=== PATIENT | female | born 1935 | race Caucasian/White ===

== ENCOUNTER 2017-03-08 08:31 | Outpatient (CLI) | payer MEDICARE ==
[2017-03-08 09:41] LABS: Anion Gap 10 mmol/L (10-20); BUN (Urea Nitrogen) 15 mg/dL (9.8-20.1); Calc. Creatinine Clearance 0 mL/min (70-130); Carbon Dioxide 29 mmol/L (23-31); Chloride 101 mmol/L (98-107); Estimated GFR-MDRD 69
--- NOTE | 2017-03-08 09:49 | ULT ---
RENAL ULTRASOUND BILATERAL: History Cyst. COMPARISON: None. FINDINGS: The kidney measures 9.4 x 5.3 x 6.3 cm and the right kidney measures 9.6 x 4 x 4.8 cm. The prevoid urinary bladder volume is 232 mL. There is a cyst at the inferior pole left kidney measuring 1.7 cm. There is also a cyst of the infe rior pole right kidney measuring 3.1 cm. No hydronephrosis. IMPRESSION: Simple bilateral renal cysts. POS: [facility]
[2017-03-08 13:03] LABS: Bilirubin Negative (Negative); Blood, Urine Negative (Negative); Glucose, Urine (Dipstick) Negative (Negative); Ketone, Urine Negative (Negative); Nitrite Negative (Negative); Protein, Urine (Dipstick) Negative (Neg-Trace); Urobilinogen 0.2 mg/dL (0.2-1.0)
[2017-03-08 13:05] LABS: Bacteria/HPF None Seen HPF (None Seen); Hyaline Casts/LPF 0-3 HYALINE CAST LPF (0-3 Hyaline); RBC/HPF 0-3 HPF (0-3); Squamous Epithelial 0-3 HPF (0-3); WBC/HPF None Seen HPF (0-3)
== END 2017-03-08 08:32 | disposition home or self-care (01) ==
LOC: ULT 08:31
PROVIDERS: ATTEND Urology
DX: Q61.9 Cystic kidney disease, unspecified (principal); R31.29 Other microscopic hematuria; N39.0 Urinary tract infection, site not specified; N28.1 Cyst of kidney, acquired
CPT/HCPCS: 36415; 76770; 80048; 81001; 87086; 88112

== ENCOUNTER 2017-05-03 02:39 | Emergency (ER) | payer MEDICARE ==
[2017-05-03 03:35] LABS: Hematocrit 38.5 % (36.0-47.0); Mean Platelet Volume 5.9 fL (7.4-10.4); Red Blood Cell (RBC) Count 3.99 mill/uL (4.20-5.40)
[2017-05-03 03:50] LABS: Band 1 % (5-11); Neutrophil 56 % (42-75); Reactive Lymphocytes 1 % (0-10)
[2017-05-03 03:54] LABS: Anion Gap 10 mmol/L (10-20); BUN (Urea Nitrogen) 14 mg/dL (9.8-20.1); Calc. Creatinine Clearance 0 mL/min (70-130); Carbon Dioxide 27 mmol/L (23-31); Chloride 106 mmol/L (98-107); Estimated GFR-MDRD 69
[2017-05-03 03:55] LABS: ALT (SGPT) 13 U/L (8-55); AST (SGOT) 18 U/L (5-34); Alkaline Phosphatase 39 U/L (40-150); Bilirubin, Total 0.5 mg/dL (0.2-1.2); CK (CPK) 58 U/L (29-168); Calcium 9.2 mg/dL (7.8-10.44); Globulin 2.1 g/dL (2.4-3.5); Protein, Total 6.1 g/dL (6.0-8.3)
[2017-05-03 03:59] LABS: Troponin I Less than 0.010 ng/mL (< 0.028)
--- NOTE | 2017-05-03 08:15 | RAD ---
SINGLE VIEW OF THE CHEST: Comparison: 03-25-15 History: Chest pain. FINDINGS: Single view of the chest shows a normal sized cardiomediastinal silhouette. The pacemaker is unchange d in position. There is no evidence of consolidation, mass, or pleural effusion. Increased interstiti al markings are present. IMPRESSION: No evidence of acute cardiopulmonary disease. POS: [facility]
== END 2017-05-03 04:32 | disposition home or self-care (01) ==
LOC: ERS 02:39
DX: R07.9 Chest pain, unspecified (principal); E78.5 Hyperlipidemia, unspecified; I10 Essential (primary) hypertension; Z87.891 Personal history of nicotine dependence
CPT/HCPCS: 36415; 71010; 80053; 82553; 84484; 85025; 93005

== ENCOUNTER 2017-09-19 13:31 | Emergency (ER) | payer MEDICARE | END 2017-09-19 14:25 | disposition home or self-care (01) | LOC: ERS 13:31 | DX: S61.215A Laceration without foreign body of left ring finger without damage to nail, initial encounter (principal); E78.5 Hyperlipidemia, unspecified; I10 Essential (primary) hypertension; Z87.891 Personal history of nicotine dependence | CPT/HCPCS: 12001 ==

== ENCOUNTER 2017-12-09 10:40 | Emergency (ER) | payer MEDICARE | END 2017-12-09 12:15 | disposition home or self-care (01) | LOC: ERS 10:40 | DX: L03.113 Cellulitis of right upper limb (principal); I10 Essential (primary) hypertension; E78.5 Hyperlipidemia, unspecified; Z79.899 Other long term (current) drug therapy; Z87.891 Personal history of nicotine dependence; Z79.82 Long term (current) use of aspirin | CPT/HCPCS: 90471 ==

== ENCOUNTER 2017-12-14 10:21 | Emergency (ER) | payer MEDICARE ==
[2017-12-14] MEDS ORDERED: Bacitracin Zinc 1 Packet ONE (10:50)
== END 2017-12-14 11:00 | disposition home or self-care (01) ==
LOC: ERS 10:21
DX: S50.811A Abrasion of right forearm, initial encounter (principal); E78.5 Hyperlipidemia, unspecified; I10 Essential (primary) hypertension; Z87.891 Personal history of nicotine dependence; X58.XXXA Exposure to other specified factors, initial encounter
CPT/HCPCS: 99283

== ENCOUNTER 2017-12-28 12:49 | Emergency (ER) | payer MEDICARE ==
--- NOTE | 2017-12-28 14:49 | ULT ---
VENOUS DOPPLER ULTRASOUND OF THE LEFT LOWER EXTREMITY: Date: 12/28/17 HISTORY: Left lower extremity pain and edema. TECHNIQUE: Jacob scale ultrasound with color flow and spectral Doppler imaging of the deep venous systems of the left lower extremity is performed. FINDINGS: There is good flow, compression, and augmentation noted in the left common femoral, femoral, deep fem oral, popliteal, posterior tibial, and greater saphenous veins. IMPRESSION: No evidence of deep venous thrombosis in the left lower extremity. POS: [facility]
== END 2017-12-28 15:21 | disposition home or self-care (01) ==
LOC: ERS 12:49
DX: S86.112A Strain of other muscle(s) and tendon(s) of posterior muscle group at lower leg level, left leg, initial encounter (principal); E78.5 Hyperlipidemia, unspecified; I10 Essential (primary) hypertension; Z87.891 Personal history of nicotine dependence; Z79.82 Long term (current) use of aspirin; Z79.899 Other long term (current) drug therapy; W18.30XA Fall on same level, unspecified, initial encounter

== ENCOUNTER 2018-02-20 10:42 | Emergency (ER) | payer MEDICARE ==
--- NOTE | 2018-02-20 14:40 | RAD ---
RADIOGRAPH LEFT KNEE 4 VIEWS: 02/20/18 HISTORY: 83-year-old female with traumatic knee pain due to fall. FINDINGS: There is no fracture or dislocation. Mild to moderate DJD at patellofemoral compartment. Mild DJD at medial and lateral compartment, without joint space narrowing there. IMPRESSION: 1. Predominantly mild osteoarthrosis. 2. No fracture. POS: [facility]
== END 2018-02-20 14:00 | disposition home or self-care (01) ==
LOC: ERS 10:42
DX: S80.212A Abrasion, left knee, initial encounter (principal); E78.5 Hyperlipidemia, unspecified; I10 Essential (primary) hypertension; Z87.891 Personal history of nicotine dependence; Z79.82 Long term (current) use of aspirin; Z79.899 Other long term (current) drug therapy; W19.XXXA Unspecified fall, initial encounter

== ENCOUNTER 2018-03-25 07:38 | Emergency (ER) | payer MEDICARE ==
[2018-03-25 08:34] LABS: #Eosinphils 0.1 thou/uL (0.0-0.7); #Monocytes 0.5 thou/uL (0.11-0.59); #Neutrophils 3.3 thou/uL (1.40-6.50); %Basophils 0.3 % (0.0-1.0); %Eosinophils 2.1 % (0.0-10.0); %Lymphocytes 20.6 % (21.0-51.0); %Monocytes 10.6 % (0.0-10.0); %Neutrophils 66.3 % (42.0-75.0); Hemoglobin 13.7 g/dL (12.0-16.0); Mean Corpuscular HGB CONC 33.6 g/dL (32.0-36.0); Mean Corpuscular Hemoglobin 31.9 pg (27.0-31.0); Mean Corpuscular Volume 94.9 fL (78.0-98.0); Mean Platelet Volume 5.9 fL (7.4-10.4); Platelet Count 256 thou/uL (130-400); RBC Distribution Width 11.1 % (11.5-14.5); Red Blood Cell (RBC) Count 4.29 mill/uL (4.20-5.40); White Blood Cell (WBC) Count 4.9 thou/uL (4.8-10.8)
[2018-03-25 08:52] LABS: ALT (SGPT) 12 U/L (8-55); AST (SGOT) 17 U/L (5-34); Albumin 4.3 g/dL (3.4-4.8); Alkaline Phosphatase 36 U/L (40-150); Anion Gap 11 mmol/L (10-20); BUN (Urea Nitrogen) 10 mg/dL (9.8-20.1); Bilirubin, Total 0.6 mg/dL (0.2-1.2); Calc. Creatinine Clearance 0 mL/min (70-130); Calcium 9.1 mg/dL (7.8-10.44); Carbon Dioxide 29 mmol/L (23-31); Chloride 104 mmol/L (98-107); Estimated GFR-MDRD 62; Globulin 2.2 g/dL (2.4-3.5); Glucose 95 mg/dL (83-110); Potassium 3.8 mmol/L (3.5-5.1); Protein, Total 6.5 g/dL (6.0-8.3); Sodium 140 mmol/L (136-145)
[2018-03-25 09:25] LABS: Bilirubin Negative (Negative); Blood, Urine Negative (Negative); Clarity CLEAR (Clear); Glucose, Urine (Dipstick) Negative (Negative); Leukocyte Moderate (Negative); Nitrite Negative (Negative); Protein, Urine (Dipstick) Negative (Neg-Trace); Specific Gravity, Urine 1.009 (1.002-1.036); Urobilinogen 0.2 mg/dL (0.2-1.0); pH, Urine 6.5 (5.0-9.0)
[2018-03-25 09:26] LABS: Bacteria/HPF None Seen HPF (None Seen); Hyaline Casts/LPF 0-3 HYALINE CAST LPF (0-3 Hyaline); Pathc Cast-AUWi Flag 0.43 (0-2.49); RBC/HPF 0-3 HPF (0-3); Squamous Epithelial 0-3 HPF (0-3)
== END 2018-03-25 10:28 | disposition home or self-care (01) ==
LOC: ERS 07:38
DX: R19.7 Diarrhea, unspecified (principal); E78.5 Hyperlipidemia, unspecified; I10 Essential (primary) hypertension; Z87.891 Personal history of nicotine dependence; Z79.82 Long term (current) use of aspirin; Z79.899 Other long term (current) drug therapy
CPT/HCPCS: 36415; 80053; 81003; 81015; 85025; 99284

== ENCOUNTER 2018-07-24 17:43 | Observation (INO) | payer MEDICARE ==
--- NOTE | 2018-07-24 18:50 | RAD ---
CHEST ONE VIEW: 07/24/18 COMPARISON: 05/03/17 HISTORY: Pain. FINDINGS: There is atherosclerosis of the aorta. Stable left sided transvenous pacemaker. Normal cardiac silhou ette. Pulmonary vessels and hilum are normal. Costophrenic angles are clear. No masses or consolidati on. No pneumothorax or osseous abnormalities. IMPRESSION: Atherosclerosis. No acute cardiopulmonary process. POS: [facility]
[2018-07-24 18:54] LABS: #Eosinphils 0.1 thou/uL (0.0-0.7); #Lymphocytes 1.1 thou/uL (1.20-3.40); #Monocytes 0.6 thou/uL (0.11-0.59); #Neutrophils 3.6 thou/uL (1.40-6.50); %Basophils 0.9 % (0.0-1.0); %Eosinophils 1.9 % (0.0-10.0); %Lymphocytes 20.1 % (21.0-51.0); %Monocytes 11.5 % (0.0-10.0); %Neutrophils 65.7 % (42.0-75.0); Hemoglobin 13.1 g/dL (12.0-16.0); Mean Corpuscular HGB CONC 32.8 g/dL (32.0-36.0); Mean Corpuscular Hemoglobin 32.1 pg (27.0-31.0); Mean Corpuscular Volume 97.6 fL (78.0-98.0); Mean Platelet Volume 6.7 fL (7.4-10.4); Platelet Count 227 thou/uL (130-400); RBC Distribution Width 10.6 % (11.5-14.5); Red Blood Cell (RBC) Count 4.09 mill/uL (4.20-5.40); White Blood Cell (WBC) Count 5.5 thou/uL (4.8-10.8)
[2018-07-24 19:21] LABS: ALT (SGPT) 11 U/L (8-55); AST (SGOT) 14 U/L (5-34); Albumin 4.2 g/dL (3.4-4.8); Alkaline Phosphatase 61 U/L (40-150); Anion Gap 12 mmol/L (10-20); BUN (Urea Nitrogen) 20 mg/dL (9.8-20.1); Bilirubin, Total 0.3 mg/dL (0.2-1.2); Calc. Creatinine Clearance 0 mL/min (70-130); Calcium 9.5 mg/dL (7.8-10.44); Carbon Dioxide 30 mmol/L (23-31); Chloride 103 mmol/L (98-107); Estimated GFR-MDRD 59; Globulin 2.3 g/dL (2.4-3.5); Glucose 99 mg/dL (83-110); Lipase 35 U/L (8-78); Protein, Total 6.5 g/dL (6.0-8.3); Sodium 141 mmol/L (136-145)
[2018-07-24 20:29] LABS: Bilirubin Negative (Negative); Blood, Urine Small (Negative); Clarity CLOUDY (Clear); Glucose, Urine (Dipstick) Negative (Negative); Leukocyte Large (Negative); Nitrite Positive (Negative); Protein, Urine (Dipstick) Trace mg/dL (Neg-Trace); Specific Gravity, Urine 1.007 (1.002-1.036)
[2018-07-24 20:31] LABS: Hyaline Casts/LPF 4-6 HYALINE CAST LPF (0-3 Hyaline); Pathc Cast-AUWi Flag 1.16 (0-2.49); Squamous Epithelial None Seen HPF (0-3); Yeast-AUWi Flag 46.8 (0-25.0)
[2018-07-24 20:40] LABS: Bacteria/HPF 2+ HPF (None Seen); WBC/HPF 21-50 HPF (0-3); Yeast-All Forms None Seen HPF (None Seen)
[2018-07-24 22:43] LABS: Troponin I Less than 0.010 ng/mL (< 0.028)
[2018-07-24] MEDS ORDERED: Aspirin Chewable 81 MG TAB ONE (22:55)
[2018-07-24] MEDS ORDERED: cefTRIAXone\\ROCEPHIN 2 GM VIAL ONE (22:55)
[2018-07-25 01:02] LABS: Troponin I Less than 0.010 ng/mL (< 0.028)
[2018-07-25 04:01] VITALS: BMI 21.4
[2018-07-25] MEDS ORDERED: Acetaminophen 325 MG TAB PO PRN (08:06)
[2018-07-25] MEDS ORDERED: Ondansetron ODT 4 MG TAB PO PRN (08:06)
[2018-07-25] MEDS ORDERED: Enoxaparin Sodium 40 MG/0.4 ML SYRINGE SC SCH (09:00)
[2018-07-25] MEDS ORDERED: Prevnar 13-Val Conj/PF 0.5 ML SYRINGE IM ONE (09:00)
--- NOTE | 2018-07-25 09:06 | HP ---
PRIMARY CARE PROVIDER: Chi Levine MD CHIEF COMPLAINT: "I don't have a brain anymore." The patient was referred to the [facility] by [facility] with chest pain. The patient is a poor historian; with difficulty, she says she had left lateral chest pain. She does not know how long it lasted. No shortness of breath and so sweats. No nausea. PAST MEDICAL HISTORY: Pertinent for hypertension, dyslipidemia, pacemaker for bradycardia. She has had two stress tests done, one in the distant past and one approximately 4 years ago, those were normal. She has a hysterectomy, cholecystectomy, , and oophorectomy. CURRENT MEDICATIONS: Unavailable. Her daughter left and the patient does not know her medicines. ALLERGIES: BY CHART, SHE IS ALLERGIC TO CODEINE AND FLAGYL. PERSONAL HISTORY: Quit smoking 20+ years ago. Does not use alcohol. . Does not understand code status. Unable to locate her daughter, Fransisca, no answer to telephone. She will be made full code pending that conversation. FAMILY HISTORY: Mother of a CVA at 80 years of age. Father in a motor vehicle accident in his 40s. REVIEW OF SYSTEMS: Review of systems was done. Reliability is questionable. CONSTITUTIONAL: In general, no headaches, dizziness or fainting. EYES: No double vision, blurred vision or flashing lights. EAR, NOSE AND THROAT: No ear pain or drainage. No nasal bleeding. No trouble swallowing. CARDIAC: No shortness of breath, orthopnea or paroxysmal nocturnal dyspnea. No pressured chest pain. RESPIRATORY: No cough, wheezing or asthma. GASTROINTESTINAL: No nausea, vomiting, diarrhea or constipation. GENITOURINARY: No hematuria or dysuria. MUSCULOSKELETAL: No pain or swelling in her arms, legs or joints. NEUROLOGICAL: No history of stroke, seizures or focal weakness. PSYCHIATRIC: No anxiety or depression. SKIN: No bruising, bleeding or rash. HEME/LYMPH: No tender or swollen lymph nodes. PHYSICAL EXAMINATION: GENERAL: She is alert lady, constantly complaining that her brain does not work and she is a poor historian. She is oriented to the fact that she is in the hospital and who she is, was a little off on date. VITAL SIGNS: Blood pressure 177/72, pulse 62, respirations 20, and temperature 97.8. HEAD, EYES, EARS, NOSE, AND THROAT: Her pupils are equal, round, and reactive to light. Extraocular movements are intact. Sclerae white. Tympanic membranes clear. Nose clear. Oral mucous membranes are wet. NECK: No jugular venous distention, adenopathy or thyromegaly. CHEST: Clear to auscultation and percussion. HEART: Regular rate and rhythm. First and second heart sounds are clear. There are no murmurs or gallops. ABDOMEN: Soft. Bowel sounds are normal. There is no hepatosplenomegaly. No mass. No rebound or bruits. EXTREMITIES: No cyanosis, clubbing or edema. PULSES: Carotid, radial, femoral, and dorsalis pedis pulses intact. SKIN: Warm and dry without bruises or rash. HEME/LYMPH: No tender or swollen lymph nodes in the axilla, inguinal or cervical area. NEUROLOGICAL: Cranial nerves 2 through 12 are intact. Deep tendon reflexes are symmetric. LABORATORY DATA: Chest x-ray, pacemaker in left upper chest, biventricular, with leads in the atrium and the ventricle; no CHF, cardiomegaly or infiltrate; reviewed by me. EKG, biventricular pacemaker with atrial pacing and ventricular sensing, no ST-T abnormality, reviewed by me. LABORATORY DATA: CBC; white count 5.5, hemoglobin 13.1, and platelet count 227,000. Comprehensive metabolic profile normal. Cardiac enzymes normal x3. UA does show pyuria. Culture has been sent. ADMITTING DIAGNOSES: 1. Chest pain, atypical. 2. Hypertension. 3. Dementia. 4. Pacemaker, biventricular. 5. Mild dementia. PLAN: I have attempted to call the daughter for discussion. I see no benefit to a stress test in this lady. I have asked for nursing assistance in locating the daughter and will discuss care from there. No plans for the immediate present. Job ID: [id number]
[2018-07-25 15:39] VITALS: BP 165/70; TEMP 98
--- NOTE | 2018-07-26 07:14 | DIS ---
DATE OF ADMISSION: 07/24/2018 DATE OF DISCHARGE: 07/25/2018 PRIMARY CARE PROVIDER: Dr. Chi Levine. DISPOSITION: Discharged home. FINAL DIAGNOSES: 1. Noncardiac chest pain. 2. Urinary tract infection with Escherichia coli. 3. Dual chamber pacemaker. 4. Early dementia. 5. Hypertension. 6. Dyslipidemia. DISCHARGE MEDICINES: 1. Cipro 250 b.i.d. for five days. 2. Vitamin D3. 3. Zoloft 50 mg a day. 4. Zocor 40 mg a day. 5. Lisinopril 2.5 mg a day. 6. Vitamin B12 oral. 7. Aspirin 81 mg a day. ALLERGIES: AMOXICILLIN/CLAVULANIC ACID, CODEINE, DONEPEZIL, METRONIDAZOLE. DIET: Heart healthy. PENDING AT TIME OF DISCHARGE: Sensitivities on urine culture. CODE STATUS: Full. HOSPITAL COURSE: The patient was admitted with left-sided upper chest pain, vaguely described. Initial EKG revealed a dual-chamber pacemaker with atrial pacing, ventricular sensing. No ST-T abnormality. Chest x-ray revealed only the pacemaker with the 2 leads, otherwise unremarkable. Laboratory; CBC unremarkable, comprehensive metabolic profile normal, troponin normal x3. Cardio respiratory exam normal. The patient has had no further chest pain. She is being discharge home. I have answered all questions from her and her daughter. She has been requested to see her PCP in 7 days for followup. I have advised her that we will check the sensitivities on the urine culture to make sure the Cipro 250 b.i.d. is appropriate. Job ID: [id number]
== END 2018-07-25 16:32 | disposition home or self-care (01) ==
LOC: ERS 17:43 → 2SW 21:30
PROVIDERS: ADMIT Hospitalist; ATTEND Hospitalist
DX: R07.89 Other chest pain (principal); N39.0 Urinary tract infection, site not specified; B96.20 Unspecified Escherichia coli [E. coli] as the cause of diseases classified elsewhere; I10 Essential (primary) hypertension; E78.5 Hyperlipidemia, unspecified; F03.90 Unspecified dementia, unspecified severity, without behavioral disturbance, psychotic disturbance, mood disturbance, and anxiety; Z95.0 Presence of cardiac pacemaker; Z90.710 Acquired absence of both cervix and uterus; Z90.49 Acquired absence of other specified parts of digestive tract; Z90.721 Acquired absence of ovaries, unilateral; Z88.5 Allergy status to narcotic agent; Z88.1 Allergy status to other antibiotic agents; Z88.8 Allergy status to other drugs, medicaments and biological substances; Z87.891 Personal history of nicotine dependence; Z79.2 Long term (current) use of antibiotics; Z79.82 Long term (current) use of aspirin; Z79.899 Other long term (current) drug therapy
CPT/HCPCS: 71045; 80053; 83690; 84484 ×3; 85025; 87077; 87086; 87186; 93005; 96365; 96372; 99285; G0378 ×2; 36415; 81003; 81015; 90471; 90670; G0009; J0696; J1650

== ENCOUNTER 2019-01-02 10:24 | Outpatient (CLI) | payer MEDICARE ==
--- NOTE | 2019-01-02 11:45 | BD ---
BONE DENSITOMETRY: HISTORY: Postmenopausal osteoporosis screening. FINDINGS: Lumbar Spine: BMD (g/cm2) L1 0.892 T-Score: -0.9 L2 0.956 T-Score: -0.7 L3 1.170 T-Score: 0.8 L4 1.201 T-Score: 1.3 L1-L4 1.057 T-Score: 0.1 Femoral Neck: 0.560 T-Score: -2.6 Total Femur: 0.827 T-Score: -0.9 Total lumbar density: 10/22/15: 1.039. Total femur density: 10/22/15: 0.756. Impression: 1. Bone mineral density of the femoral neck indicates osteoporosis. 2. Bone mineral density of the lumbar spine within normal range. POS: [facility]
== END 2019-01-02 10:25 | disposition home or self-care (01) ==
LOC: BICMAMMO 10:24
PROVIDERS: ATTEND Family Medicine
DX: Z13.820 Encounter for screening for osteoporosis (principal); M81.0 Age-related osteoporosis without current pathological fracture; Z78.0 Asymptomatic menopausal state
CPT/HCPCS: 77080

== ENCOUNTER 2020-02-18 00:59 | Emergency (ER) | payer MEDICARE ==
[2020-02-18 02:16] LABS: #Basophils 0.1 thou/uL (0.0-0.2); #Eosinphils 0.2 thou/uL (0.0-0.7); #Lymphocytes 1.1 thou/uL (1.20-3.40); #Monocytes 0.7 thou/uL (0.11-0.59); #Neutrophils 4.5 thou/uL (1.40-6.50); %Basophils 1.2 % (0.0-1.0); %Eosinophils 3.5 % (0.0-10.0); %Lymphocytes 16.8 % (21.0-51.0); %Monocytes 10.6 % (0.0-10.0); %Neutrophils 67.9 % (42.0-75.0); Hemoglobin 13.4 g/dL (12.0-16.0); Mean Corpuscular HGB CONC 33.4 g/dL (32.0-36.0); Mean Corpuscular Hemoglobin 31.8 pg (27.0-31.0); Mean Corpuscular Volume 95.2 fL (78.0-98.0); Mean Platelet Volume 6.7 fL (7.4-10.4); Platelet Count 207 thou/uL (130-400); RBC Distribution Width 11.1 % (11.5-14.5); Red Blood Cell (RBC) Count 4.21 mill/uL (4.20-5.40); White Blood Cell (WBC) Count 6.6 thou/uL (4.8-10.8)
[2020-02-18 02:27] LABS: Anion Gap 12 mmol/L (10-20); BUN (Urea Nitrogen) 16 mg/dL (9.8-20.1); Calc. Creatinine Clearance 0 mL/min (70-130); Carbon Dioxide 27 mmol/L (23-31); Chloride 105 mmol/L (98-107); Estimated GFR-MDRD 63; Potassium 3.7 mmol/L (3.5-5.1); Sodium 140 mmol/L (136-145)
[2020-02-18 02:28] LABS: ALT (SGPT) 13 U/L (8-55); AST (SGOT) 15 U/L (5-34); Albumin 4.2 g/dL (3.4-4.8); Alkaline Phosphatase 63 U/L (40-110); Bilirubin, Total 0.4 mg/dL (0.2-1.2); Calcium 8.8 mg/dL (7.8-10.44); Globulin 2.3 g/dL (2.4-3.5); Glucose 108 mg/dL (83-110); Protein, Total 6.5 g/dL (6.0-8.3)
--- NOTE | 2020-02-18 09:37 | CT ---
PRELIMINARY REPORT/[facility]/EMERGENCY AFTER HOURS PROCEDURE: EXAM: CT Head Without Intravenous Contrast. CLINICAL HISTORY: HX OF ALZHEIMERS UNWITNESSED FALL- HAS A TENDENCY TO WANDER AT NIGHT. FELL AND HIT R EYEBROW. LAC TO RT ORBIT TECHNIQUE: Axial computed tomography images of the head/brain without intravenous contrast. COMPARISON: None provided. FINDINGS: BRAIN: There is stable cerebral atrophy. No acute intraparenchymal hemorrhage. No mass lesion. No CT evidence for acute territorial infarct. No midline shift or extra-axial collection. Stable 2.2 x 2.4 cm partly calcified extra-axial mass abutting the sphenoid bone and extending into the anterior middl e cranial fossa. There may be a second partly calcified extra-axial mass within the inferior right m iddle cranial fossa that measures 1 cm. Stable CSF attenuation fluid in the anterior left middle cran ial fossa consistent with an arachnoid cyst. VENTRICLES: No hydrocephalus. ORBITS: The orbits are unremarkable. SINUSES AND MASTOIDS: The paranasal sinuses and mastoid air cells are clear. SOFT TISSUES: No significant facial or scalp soft tissue swelling evident. No radiopaque foreign body is seen. BONES: No acute skull fracture. IMPRESSION: No acute intracranial injury. ELECTRONICALLY SIGNED BY: Tina Etienne MD Feb 18, 2020 2:34:16 AM CDT FINAL REPORT EMERGENT AFTER HOURS CT OF THE BRAIN WITHOUT CONTRAST: COMPARISON: 03/25/2015. FINDINGS/IMPRESSION: I agree with the findings and impression given in the preliminary report per [facility]. 1. No evidence of acute intracranial abnormality. 2. There is a partially calcified mass in the anterior aspect of the right middle cranial fossa whic h may represent a meningioma. 3. Cerebrospinal fluid density is in the anterior aspect of the left middle cranial fossa which coul d represent an arachnoid cyst. POS: [facility]
== END 2020-02-18 03:10 | disposition home or self-care (01) ==
LOC: ERS 00:59
DX: S01.111A Laceration without foreign body of right eyelid and periocular area, initial encounter (principal); E78.5 Hyperlipidemia, unspecified; G30.9 Alzheimer's disease, unspecified; E78.00 Pure hypercholesterolemia, unspecified; I10 Essential (primary) hypertension; F32.9 Major depressive disorder, single episode, unspecified; Z79.899 Other long term (current) drug therapy; W17.89XA Other fall from one level to another, initial encounter
CPT/HCPCS: 12011; 36415; 70450; 80053; 85025; 93005

== ENCOUNTER 2022-05-22 14:58 | Emergency (ER) | payer MEDICARE ==
[2022-05-22 15:47] LABS: #Lymphocytes 0.8 thou/uL (1.20-3.40); #Monocytes 0.8 thou/uL (0.11-0.59); #Neutrophils 5.8 thou/uL (1.40-6.50); %Eosinophils 0.1 % (0.0-10.0); %Lymphocytes 10.8 % (21.0-51.0); %Monocytes 11.2 % (0.0-10.0); %Neutrophils 77.9 % (42.0-75.0); Hemoglobin 12.4 g/dL (12.0-16.0); Mean Corpuscular HGB CONC 32.9 g/dL (32.0-36.0); Mean Corpuscular Hemoglobin 31.2 pg (27.0-31.0); Mean Corpuscular Volume 94.8 fl (78.0-98.0); Mean Platelet Volume 6.9 fL (7.4-10.4); Platelet Count 222 10x3/uL (130-400); RBC Distribution Width 11.4 % (11.5-14.5); Red Blood Cell (RBC) Count 3.98 mill/uL (4.20-5.40); White Blood Cell (WBC) Count 7.5 10x3/uL (4.8-10.8)
[2022-05-22 15:57] LABS: ALT (SGPT) 7 U/L (8-55); AST (SGOT) 21 U/L (5-34); Albumin 3.7 g/dL (3.4-4.8); Alkaline Phosphatase 46 U/L (40-110); Anion Gap 14 mmol/L (10-20); BUN (Urea Nitrogen) 25 mg/dL (9.8-20.1); Bilirubin, Total 0.5 mg/dL (0.2-1.2); Calc. Creatinine Clearance 0 mL/min (70-130); Calcium 8.7 mg/dL (7.8-10.44); Carbon Dioxide 26 mmol/L (23-31); Chloride 107 mmol/L (98-107); Estimated GFR 69; Globulin 2.7 g/dL (2.4-3.5); Glucose 99 mg/dL (83-110); Potassium 4.2 mmol/L (3.5-5.1); Protein, Total 6.4 g/dL (5.8-8.1); Sodium 143 mmol/L (136-145)
[2022-05-22] MEDS ORDERED: Bacitracin 1 PK ONE (16:06)
== END 2022-05-22 19:00 ==
LOC: ERS 14:58
DX: S01.81XA Laceration without foreign body of other part of head, initial encounter (principal); E78.00 Pure hypercholesterolemia, unspecified; I10 Essential (primary) hypertension; W19.XXXA Unspecified fall, initial encounter; Z79.899 Other long term (current) drug therapy
CPT/HCPCS: 36415; 70450; 71045; 72170; 80053; 84484; 85025; 93005

== ENCOUNTER 2022-05-23 10:21 | Inpatient (IN) | payer MEDICARE, MEDICAID ==
[2022-05-23 11:20] LABS: Actual Bicarbonate (HCO3v) 24 mEq/L (22-28); Base Excess 1.5 mEq/L (-2.0 to +3.0); Calcium, Ionized (venous) 1.04 mmol/L (1.16-1.32); Chloride (VBG) 107 mmol/L (98-106); Hemoglobin (Hb) 12.1 g/dL (11.7-16.1); Potassium (VBG) 3.92 mmol/L (3.70-5.30); Sodium 138.7 mmol/L (133-146); pH (venous) 7.52 (7.32-7.43)
[2022-05-23 11:51] LABS: ALT (SGPT) 12 U/L (8-55); AST (SGOT) 19 U/L (5-34); Acetaminophen Less than 10.0 mcg/mL (10.0-30.0); Albumin 3.1 g/dL (3.4-4.8); Alcohol Less than 10 mg/dL (Less than 10); Alkaline Phosphatase 39 U/L (40-110); Anion Gap 14 mmol/L (10-20); BUN (Urea Nitrogen) 30 mg/dL (9.8-20.1); Bilirubin, Total 0.6 mg/dL (0.2-1.2); Calc. Creatinine Clearance 0 mL/min (70-130); Calcium 8.5 mg/dL (7.8-10.44); Carbon Dioxide 18 mmol/L (23-31); Chloride 110 mmol/L (98-107); Estimated GFR 74; Globulin 2.6 g/dL (2.4-3.5); Glucose 98 mg/dL (83-110); Magnesium 1.8 mg/dL (1.6-2.6); Protein, Total 5.7 g/dL (5.8-8.1); Salicylate Less than 8.0 mg/dL (15.0-30.0); Sodium 138 mmol/L (136-145)
[2022-05-23] MEDS ORDERED: Ketorolac Tromethamine 30 MG/ML VIAL ONE (12:00)
[2022-05-23 12:04] LABS: #Lymphocytes 0.8 thou/uL (1.20-3.40); #Neutrophils 7.5 thou/uL (1.40-6.50); %Basophils 0.1 % (0.0-1.0); %Eosinophils 0.2 % (0.0-10.0); %Lymphocytes 8.5 % (21.0-51.0); %Neutrophils 80.2 % (42.0-75.0); Hemoglobin 11.8 g/dL (12.0-16.0); Mean Corpuscular HGB CONC 33.6 g/dL (32.0-36.0); Mean Corpuscular Hemoglobin 31.6 pg (27.0-31.0); Mean Corpuscular Volume 94.1 fl (78.0-98.0); Mean Platelet Volume 6.8 fL (7.4-10.4); Platelet Count 202 10x3/uL (130-400); RBC Distribution Width 11.6 % (11.5-14.5); Red Blood Cell (RBC) Count 3.75 mill/uL (4.20-5.40); White Blood Cell (WBC) Count 9.4 10x3/uL (4.8-10.8)
[2022-05-23] MEDS ORDERED: Ondansetron ODT 4 MG TAB PO PRN (16:53)
[2022-05-23] MEDS ORDERED: Ondansetron PF 4 MG/2 ML Vial IVP PRN (16:53)
[2022-05-23 19:48] VITALS: BMI 22.1
[2022-05-24 01:37] LABS: Bilirubin Negative (Negative); Blood, Urine 1+ (Negative); Clarity Extra Turbid (Clear); Glucose, Urine (Dipstick) Normal (Negative); Ketone, Urine Trace mg/dL (Negative); Leukocyte 500 Leu/uL (Negative); Nitrite 2+ (Negative); Protein, Urine (Dipstick) 70 mg/dL (Neg-Trace); Specific Gravity, Urine 1.022 (1.002-1.036); Squamous Epithelial 0-3 HPF (0-3); Triple Phosphate Crystal Rare HPF (None Seen); Urobilinogen Normal mg/dL (Less than 2); WBC/HPF Greater than 50 HPF (0-3)
[2022-05-24 01:38] LABS: Bacteria/HPF 1+ HPF (None Seen)
[2022-05-24 07:25] LABS: #Eosinphils 0.1 thou/uL (0.0-0.7); #Lymphocytes 0.8 thou/uL (1.20-3.40); #Monocytes 0.8 thou/uL (0.11-0.59); #Neutrophils 6.3 thou/uL (1.40-6.50); %Basophils 0.1 % (0.0-1.0); %Eosinophils 1.6 % (0.0-10.0); %Lymphocytes 10.2 % (21.0-51.0); %Neutrophils 78.1 % (42.0-75.0); Hemoglobin 10.9 g/dL (12.0-16.0); Mean Corpuscular HGB CONC 33.8 g/dL (32.0-36.0); Mean Corpuscular Hemoglobin 31.9 pg (27.0-31.0); Mean Corpuscular Volume 94.5 fl (78.0-98.0); Platelet Count 170 10x3/uL (130-400); RBC Distribution Width 11.4 % (11.5-14.5); Red Blood Cell (RBC) Count 3.41 mill/uL (4.20-5.40)
[2022-05-24 07:34] LABS: Anion Gap 9 mmol/L (10-20); BUN (Urea Nitrogen) 22 mg/dL (9.8-20.1); Calc. Creatinine Clearance 51 mL/min (70-130); Carbon Dioxide 24 mmol/L (23-31); Chloride 109 mmol/L (98-107); Estimated GFR 86; Glucose 88 mg/dL (83-110); Potassium 3.7 mmol/L (3.5-5.1); Sodium 138 mmol/L (136-145)
[2022-05-24 08:03] LABS: SARS-CoV-2 NAA Rapid Test DETECTED (NotDetected)
[2022-05-24] MEDS ORDERED: Benzonatate 100 MG CAP PO PRN (08:56)
[2022-05-24] MEDS ORDERED: Acetaminophen 325 MG TAB PO PRN (08:56)
[2022-05-24] MEDS ORDERED: Albuterol 200 PUFF (6.7GM INHALER) INH PRN (08:56)
[2022-05-24] MEDS ORDERED: Non-Formulary Item 1 EACH (Sertraline Hcl [Sertraline Hcl] 50 MG Tablet) PO SCH (09:00)
[2022-05-24] MEDS ORDERED: Non-Formulary Item 1 EACH (Risperidone [Risperdal] 0.5 MG Tab) PO SCH (09:00)
[2022-05-24] MEDS ORDERED: Lisinopril 5 MG TAB PO SCH (09:00)
[2022-05-24] MEDS ORDERED: risperiDONE 0.25 MG TAB PO SCH (09:30)
[2022-05-24] MEDS ORDERED: Sertraline 100 MG TAB PO SCH (09:30)
[2022-05-24] MEDS: Enoxaparin Sodium 40 MG/0.4 ML SYRINGE SC SCH (09:37)
[2022-05-24] MEDS: cefTRIAXone\\ROCEPHIN 1 GM in Sodium Chloride 0.9% 100 ML IVPB SCH (09:37)
[2022-05-24] MEDS: Ascorbic Acid 500 mg Chewable Tablet PO SCH (09:38)
[2022-05-24] MEDS: Zinc Sulfate 220 MG CAP PO SCH (09:38)
[2022-05-24] MEDS: Cholecalciferol (Vitamin D3) 400 UNITS TAB PO SCH (09:38)
[2022-05-24] MEDS: Lisinopril 10 MG TAB PO SCH (09:38)
[2022-05-24] MEDS: Famotidine 20 MG TAB PO SCH ×2 (09:38→19:48)
[2022-05-24] MEDS ORDERED: ALPRAZolam 0.5 MG TAB PO SCH (15:30)
[2022-05-24] MEDS: risperiDONE 0.25 MG TAB PO SCH (19:49)
[2022-05-25 07:51] VITALS: BP 197/72; TEMP 98.4
[2022-05-25] MEDS: cefTRIAXone\\ROCEPHIN 1 GM in Sodium Chloride 0.9% 100 ML IVPB SCH (08:34)
[2022-05-25] MEDS: Enoxaparin Sodium 40 MG/0.4 ML SYRINGE SC SCH (08:35)
[2022-05-25] MEDS: risperiDONE 0.25 MG TAB PO SCH (08:36)
[2022-05-25] MEDS: Lisinopril 10 MG TAB PO SCH (08:36)
[2022-05-25] MEDS: Famotidine 20 MG TAB PO SCH (08:37)
[2022-05-25] MEDS: Cholecalciferol (Vitamin D3) 400 UNITS TAB PO SCH (08:37)
[2022-05-25] MEDS: Zinc Sulfate 220 MG CAP PO SCH (08:37)
[2022-05-25] MEDS: Ascorbic Acid 500 mg Chewable Tablet PO SCH (08:37)
[2022-05-25] MEDS ORDERED: Sertraline 100 MG TAB PO SCH (09:00)
[2022-05-26] MEDS ORDERED: Nitrofurantoin Monohyd/M-Cryst 100 MG CAP PO SCH (09:00)
== END 2022-05-25 15:59 | DRG 689 ==
LOC: ERS 10:21 → T4-A 16:41 → OBSVTOIN 05-24 22:20
PROVIDERS: ADMIT Internal Medicine; ATTEND Internal Medicine
PROC: 8E0ZXY6 Isolation (ICD-10-PCS; principal; 2022-05-24)
DX: N39.0 Urinary tract infection, site not specified (principal); G93.41 Metabolic encephalopathy; U07.1 COVID-19; I10 Essential (primary) hypertension; E78.5 Hyperlipidemia, unspecified; F03.90 Unspecified dementia, unspecified severity, without behavioral disturbance, psychotic disturbance, mood disturbance, and anxiety; Z78.1 Physical restraint status; Z88.1 Allergy status to other antibiotic agents; Z88.5 Allergy status to narcotic agent; Z88.2 Allergy status to sulfonamides; Z88.8 Allergy status to other drugs, medicaments and biological substances; Z95.0 Presence of cardiac pacemaker; Z79.899 Other long term (current) drug therapy; Z79.82 Long term (current) use of aspirin
CPT/HCPCS: 36415; 70450; 71045; 72125; 72170; 80048; 80053; 80307; 81001; 82805; 83605; 83690; 83735; 83880; 84484; 85025; 87040; 87086; 87149; 93005; 96372; 96374; 96375; G0378; J0696; J1650; J1885; J3490

== ENCOUNTER 2023-01-02 16:07 | Emergency (ER) | payer MEDICARE, MEDICAID ==
[2023-01-02 16:49] LABS: #Eosinphils 0.1 thou/uL (0.0-0.7); #Monocytes 0.6 thou/uL (0.11-0.59); #Neutrophils 3.7 thou/uL (1.40-6.50); %Basophils 0.6 % (0.0-1.0); %Eosinophils 1.9 % (0.0-10.0); %Lymphocytes 16.5 % (21.0-51.0); %Monocytes 11.4 % (0.0-10.0); %Neutrophils 69.6 % (42.0-75.0); Hematocrit 36.6 % (36.0-47.0); Hemoglobin 12.2 g/dL (12.0-16.0); Mean Corpuscular HGB CONC 33.3 g/dL (32.0-36.0); Mean Corpuscular Hemoglobin 30.9 pg (27.0-31.0); Mean Corpuscular Volume 92.7 fl (78.0-98.0); Mean Platelet Volume 9.1 fL (7.4-10.4); Platelet Count 174 10x3/uL (130-400); Red Blood Cell (RBC) Count 3.95 mill/uL (4.20-5.40); White Blood Cell (WBC) Count 5.3 10x3/uL (4.8-10.8)
[2023-01-02 17:11] LABS: Bacteria/HPF None Seen HPF (None Seen); Bilirubin Negative (Negative); Blood, Urine 1+ (Negative); CAUTI Indications for Culture Dysuria,urgency,freq; Glucose, Urine (Dipstick) Normal (Negative); Ketone, Urine Negative (Negative); Leukocyte 500 Leu/uL (Negative); Nitrite 1+ (Negative); Protein, Urine (Dipstick) 30 mg/dL (Neg-Trace); Specific Gravity, Urine 1.016 (1.002-1.036); Squamous Epithelial None Seen HPF (0-3); Urobilinogen Normal mg/dL (Less than 2); WBC/HPF Greater than 50 HPF (0-3); pH, Urine 6.5 (5.0-9.0)
[2023-01-02 17:14] LABS: ALT (SGPT) 7 U/L (8-55); AST (SGOT) 11 U/L (5-34); Albumin 3.7 g/dL (3.4-4.8); Alkaline Phosphatase 49 U/L (40-110); Anion Gap 11 mmol/L (10-20); BUN (Urea Nitrogen) 20 mg/dL (9.8-20.1); Bilirubin, Total 0.4 mg/dL (0.2-1.2); Calc. Creatinine Clearance 0 mL/min (70-130); Calcium 8.7 mg/dL (7.8-10.44); Carbon Dioxide 27 mmol/L (23-31); Chloride 107 mmol/L (98-107); Estimated GFR 71; Globulin 2.2 g/dL (2.4-3.5); Glucose 97 mg/dL (83-110); Potassium 4.2 mmol/L (3.5-5.1); Protein, Total 5.9 g/dL (5.8-8.1); Sodium 141 mmol/L (136-145)
[2023-01-02 17:16] LABS: Troponin I Less than 0.010 ng/mL (< 0.028)
[2023-01-02 17:17] LABS: Clarity Cloudy (Clear); Urine Culture Reflex Yes Yes
== END 2023-01-02 17:42 ==
LOC: ERS 16:07
DX: S09.90XA Unspecified injury of head, initial encounter (principal); F03.90 Unspecified dementia, unspecified severity, without behavioral disturbance, psychotic disturbance, mood disturbance, and anxiety; N39.0 Urinary tract infection, site not specified; I10 Essential (primary) hypertension; E78.5 Hyperlipidemia, unspecified; W18.30XA Fall on same level, unspecified, initial encounter; Z79.899 Other long term (current) drug therapy
CPT/HCPCS: 36415; 51701; 70450; 72125; 80053; 81001; 84484; 85025; 87077; 87086; 87186; 93005

== ENCOUNTER 2023-04-21 18:14 | Emergency (ER) | payer MEDICARE, MEDICAID ==
[2023-04-21 19:30] LABS: #Eosinphils 0.1 thou/uL (0.0-0.7); #Monocytes 0.7 thou/uL (0.11-0.59); #Neutrophils 8.5 thou/uL (1.40-6.50); %Basophils 0.3 % (0.0-1.0); %Eosinophils 0.5 % (0.0-10.0); %Lymphocytes 5.3 % (21.0-51.0); %Monocytes 7.5 % (0.0-10.0); %Neutrophils 85.3 % (42.0-75.0); Hematocrit 37.8 % (36.0-47.0); Hemoglobin 12.3 g/dL (12.0-16.0); Mean Corpuscular HGB CONC 32.5 g/dL (32.0-36.0); Mean Corpuscular Hemoglobin 31.7 pg (27.0-31.0); Mean Corpuscular Volume 97.4 fl (78.0-98.0); Mean Platelet Volume 9.9 fL (7.4-10.4); Platelet Count 148 10x3/uL (130-400); RBC Distribution Width 12.2 % (11.5-14.5); Red Blood Cell (RBC) Count 3.88 mill/uL (4.20-5.40); White Blood Cell (WBC) Count 9.9 10x3/uL (4.8-10.8)
[2023-04-21 19:38] LABS: ALT (SGPT) 11 U/L (8-55); AST (SGOT) 13 U/L (5-34); Albumin 3.8 g/dL (3.4-4.8); Alkaline Phosphatase 55 U/L (40-110); Anion Gap 12 mmol/L (10-20); BUN (Urea Nitrogen) 22 mg/dL (9.8-20.1); Bilirubin, Total 0.5 mg/dL (0.2-1.2); CK (CPK) 51 U/L (29-168); Calc. Creatinine Clearance 0 mL/min (70-130); Carbon Dioxide 26 mmol/L (23-31); Chloride 106 mmol/L (98-107); Estimated GFR 79; Globulin 2.3 g/dL (2.4-3.5); Glucose 101 mg/dL (83-110); Potassium 3.4 mmol/L (3.5-5.1); Protein, Total 6.1 g/dL (5.8-8.1); Sodium 141 mmol/L (136-145)
[2023-04-21] MEDS ORDERED: Ketorolac Tromethamine 30 MG/ML VIAL ONE (19:47)
[2023-04-21] MEDS ORDERED: fentaNYL 50 mcg/mL 1 mL Vial ONE (19:47)
[2023-04-21 20:34] LABS: Bacteria/HPF 2+ HPF (None Seen); Bilirubin Negative (Negative); Blood, Urine Negative (Negative); CAUTI Indications for Culture Pelvic or flank pain; Clarity Turbid (Clear); Glucose, Urine (Dipstick) Normal (Negative); Ketone, Urine 10 mg/dL (Negative); Leukocyte 500 Leu/uL (Negative); Nitrite Negative (Negative); Protein, Urine (Dipstick) 50 mg/dL (Neg-Trace); RBC/HPF 0-3 HPF (0-3); Squamous Epithelial 0-3 HPF (0-3); WBC/HPF Greater than 50 HPF (0-3); pH, Urine 5.5 (5.0-9.0)
[2023-04-21 20:36] LABS: Urine Culture Reflex Yes Yes
== END 2023-04-21 21:30 | disposition home or self-care (01) ==
LOC: ERS 18:14
DX: S32.501A Unspecified fracture of right pubis, initial encounter for closed fracture (principal); N39.0 Urinary tract infection, site not specified; I10 Essential (primary) hypertension; E78.5 Hyperlipidemia, unspecified; W18.00XA Striking against unspecified object with subsequent fall, initial encounter; Y92.219 Unspecified school as the place of occurrence of the external cause; Z79.899 Other long term (current) drug therapy
CPT/HCPCS: 51701; 70450; 71045; 72125; 72170; 73502; 80053; 81001; 82550; 85025; 87086; 93005; 96374; 96375; 99285; J3010; 36415; J1885